=== PATIENT | female | born 1940 | race Caucasian/White ===

== ENCOUNTER 2021-08-12 08:23 | Observation (INO) ==
--- NOTE | 2021-07-16 15:23 | PAT Medication Instructions ---
Medication Instructions Date of Service July 16, 2021 Home Medications Medication Instructions Recorded Lactobacillus 1 cap PO DAILY #90 cap 11/28/18 acidophilus-Bifidobac.animalis 31 billion cell capsule calcium carbonate 600 mg-vitamin 1 tab PO BID #60 tab 11/28/18 D3 5 mcg (200 unit) tablet albuterol sulfate 90 mcg/actuation 2 puff INHALATION QID PRN #6.7 g 09/19/20 aerosol inhaler zoledronic acid 5 mg/100 mL in See Rx Instructions IV .COMPLEX 03/19/21 mannitol 5 %-water intravenous #100 ml piggybck (Reclast) gabapentin 100 mg capsule 100 mg PO QID #100 cap 07/03/21 Lactobacillus acidophilus-Bifidobac.animalis 31 billion cell capsule 1 cap PO DAILY calcium carbonate 600 mg-vitamin D3 5 mcg (200 unit) tablet 1 tab PO BID omega-3 fatty acids 1,000 mg capsule (Fish Oil Concentrate) 1,000 mg PO BID albuterol sulfate 90 mcg/actuation aerosol inhaler 2 puff INHALATION QID PRN zoledronic acid 5 mg/100 mL in mannitol 5 %-water intravenous piggybck (Reclast) See Rx Instructions IV .COMPLEX amlodipine 5 mg tablet 5 mg PO DAILY losartan 100 mg tablet 50 mg PO QAM simvastatin 40 mg tablet 20 mg PO HS gabapentin 100 mg capsule 100 mg PO QID ascorbic acid (vitamin C) 500 mg tablet (Vitamin C) 500 mg PO DAILY esomeprazole magnesium 20 mg capsule,delayed release 20 mg PO QAM flaxseed oil 1,000 mg capsule 1,000 mg PO QAM Centrum Silver Women 1 tab PO DAILY triamterene 37.5 mg-hydrochlorothiazide 25 mg tablet 0.5 tab PO QAM Continue as directed zoledronic acid 5 mg/100 mL in mannitol 5 %-water intravenous piggybck (Reclast) See Rx Instructions IV .COMPLEX STOP taking 2 weeks before surgery (or as soon as possible if surgery is within 2 weeks) omega-3 fatty acids 1,000 mg capsule (Fish Oil Concentrate) 1,000 mg PO BID flaxseed oil 1,000 mg capsule 1,000 mg PO QAM DO NOT take the morning of surgery Lactobacillus acidophilus-Bifidobac.animalis 31 billion cell capsule 1 cap PO DAILY calcium carbonate 600 mg-vitamin D3 5 mcg (200 unit) tablet 1 tab PO BID losartan 100 mg tablet 50 mg PO QAM ascorbic acid (vitamin C) 500 mg tablet (Vitamin C) 500 mg PO DAILY Centrum Silver Women 1 tab PO DAILY triamterene 37.5 mg-hydrochlorothiazide 25 mg tablet 0.5 tab PO QAM Take morning of surgery With a small sip of water, OTHERWISE NOTHING TO EAT OR DRINK AFTER MIDNIGHT: albuterol sulfate 90 mcg/actuation aerosol inhaler 2 puff INHALATION QID PRN (use if needed; please bring rescue inhaler with you to hospital day of surgery if possible) amlodipine 5 mg tablet 5 mg PO DAILY gabapentin 100 mg capsule 100 mg PO QID esomeprazole magnesium 20 mg capsule,delayed release 20 mg PO QAM Take evening before surgery calcium carbonate 600 mg-vitamin D3 5 mcg (200 unit) tablet 1 tab PO BID albuterol sulfate 90 mcg/actuation aerosol inhaler 2 puff INHALATION QID PRN (if needed) simvastatin 40 mg tablet 20 mg PO HS gabapentin 100 mg capsule 100 mg PO QID Other Notes If you have any questions please call us at [phone] or [phone] or [phone] or [phone]
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
--- NOTE | 2021-08-09 12:47 | History and Physical Report ---
DATE OF ADMISSION: 08/12/2021 CHIEF COMPLAINT: Persistent progressive right knee pain and discomfort. HISTORY OF PRESENT ILLNESS: The patient is an 80-year-old female who presents for surgical treatment of her right knee: She has a long history of right knee pain and discomfort that has gradually yannick en worse over time. She has been getting injections at the [facility] in [place]. She has had steroid shots and gel shots. These have become less successful over time. She has global pa in in her knee. Increased with weightbearing. She is having trouble maintaining an independent life style. PAST MEDICAL HISTORY: Includes: 1. Hypertension. 2. Elevated cholesterol. 3. Hiatal hernia. 4. Low back pain/sciatica. 5. High anxiety. PAST SURGICAL HISTORY: Includes: 1. Basal cell skin cancer excision. 2. Appendectomy. 3. Cholecystectomy. 4. Hysterectomy. ALLERGIES: XANAX, ASPIRIN, IBUPROFEN. ASPIRIN CAUSES NOSEBLEEDS. CURRENT MEDICATIONS: Include: 1. Albuterol. 2. Calcium. 3. Omeprazole. 4. Flaxseed oil. 5. Gabapentin. 6. Hydroxyzine. 7. Losartan. 8. [place] fatty acids. 9. Simvastatin. 10. Triamterene/hydrochlorothiazide. 11. Reclast. SOCIAL HISTORY: An 80-year-old female. Lives alone. She is retired. She does have family around. FAMILY HISTORY: Noncontributory. REVIEW OF SYSTEMS: Negative for diabetes, neurologic problems, vascular problem, or bleeding disorde rs. No chest pain. She does have some history of dizziness with a negative workup. She has anxiety . PHYSICAL EXAMINATION: GENERAL: Shows a pleasant, elderly female. Looks younger than her stated age. HEENT: Benign. NECK: Supple. No lymphadenopathy. LUNGS: Clear to auscultation. HEART: Regular rate and rhythm. ABDOMEN: Soft, nontender, nondistended. EXTREMITIES: Grossly neurovascularly intact except as follows. Examination of the right knee reveals the patient walks with a slight bit of a limp. She has varus a lignment to her knee. She is tender over the medial joint line. She has bony hypertrophy medially. Small knee effusion. Range of motion 5-125. No instability. No pain with hip motion. X-RAYS: X-rays of the right knee were reviewed. It shows advanced right knee medial compartment DJD . She has complete loss of her medial joint space. She has subchondral sclerosis. ASSESSMENT: An 80-year-old female with advanced right knee degenerative joint disease. She has fail ed conservative measures. She would like to have her right knee replaced. PLAN: We will take her to the operating room and do a right total knee replacement. The risks and b enefits of this procedure were explained to the patient and include but not limited to DVT, PE, , infection, neurological injury, vascular injury, bleeding problem, pain, limited range of motion, s tiffness, failure to relieve symptoms, incomplete relief of symptoms, need for further surgery in the future, fracture, leg length inequality, nerve palsy, etc. The patient understands and desires to p roceed. Informed consent was obtained. She does not want to use aspirin because of nosebleeds. Therefore, we will use Xarelto for 30 days p ostoperative. She does have quite a bit of anxiety. She has had some dizziness or lightheaded, had a negative cardiac workup. As far as discharge plans, she is hoping to go to [place] for a brief rehab stay afterwards as jaclyn zelaya lives by herself. Job ID: [id number]
[~2021-08-12 08:23] MED LIST: ACETAMINOPHEN 500 MG TAB PO SCH; BUPIVACAINE 0.5 % 5 MG/1 ML PF 10ML VIAL ONE; BUPIVACAINE LIPOSOME/PF 266 MG, BUPIVACAINE/EPINEPHRINE 50 ML, SODIUM CHLORIDE 0.9% 30 ... INFIL SCH; GABAPENTIN 300 MG CAP PO SCH; LR 500ML BOLUS, THEN 15ML/HR IV SCH; LR 60ML/HR IV SCH; METOCLOPRAMIDE HCL 10 MG TABLET PO SCH; ROPIVACAINE 0.5% 5 MG/ML 30 ML VIAL ONE; TRANEXAMIC ACID 1,000 MG **IV Intra-op IV SCH; ceFAZolin 2000MG 2,000 MG/15 ML SYR IV SCH
--- NOTE | 2021-08-12 08:30 | History & Physical Bridge Note ---
Date of Service August 12, 2021 History & Physical Bridge Note I have examined the patient, reviewed the History & Physical and in the interval since the performance of the History & Physical I have noted the following changes of clinical significance: no changes noted
[2021-08-12] MEDS ORDERED: ONDANSETRON INJ 2 MG/ML 2 ML VIAL IV PRN ×2 (09:09→13:32)
[2021-08-12] MEDS ORDERED: fentaNYL citrate 100 MCG/2 ML VIAL IV PRN (09:09)
[2021-08-12] MEDS ORDERED: ATROPINE SULFATE 0.1 MG/ML 10ML SYR IV PRN (09:09)
[2021-08-12] MEDS ORDERED: ePHEDrine sulfate 50 MG/ML AMP IV PRN (09:09)
[2021-08-12] MEDS ORDERED: fentaNYL citrate 100 MCG/2 ML VIAL ONE (09:42)
[2021-08-12] MEDS ORDERED: MIDAZOLAM HCL 1 MG/ML 2ML VIAL ONE (09:43)
[2021-08-12] MEDS ORDERED: SODIUM CHLORIDE 0.9% INJ 10 ML VIAL ONE (10:30)
[2021-08-12] MEDS ORDERED: BUPIVACAINE/EPINEPHRINE 0.25% 1:200,000 30 ML VIAL ONE (10:30)
[2021-08-12] MEDS ORDERED: BUPIVACAINE LIPOSOME 1.3% 266 MG/20 ML VIAL ONE (10:30)
[2021-08-12] MEDS ORDERED: PROPOFOL IV EMULSION 10 MG/ML 20 ML VIAL IV ONE (11:42)
[2021-08-12] MEDS ORDERED: ePHEDrine sulfate 50 MG/ML SYR ONE (12:22)
--- NOTE | 2021-08-12 12:33 | Operative Report ---
PG Post Operative Report Pre & Post Diagnosis Operation Date: 08/12/21 10:40 Pre-Op Diagnosis: Right Knee Osteoarthritis Post-Op Diagnosis: Right Knee Osteoarthritis I identified the patient and participated in the time-out.: Yes Procedure Operation Date: 08/12/21 10:40 Actual Procedures p Right Total Knee Arthroplasty(Right) - Edilson Quezada MD Surgeon Edislon Quezada MD Integrity Specialist George Nino PA-C Estimated Blood Loss 50 Findings Consistent with Post-Op Diagnosis Operative findings were advanced right knee DJD. She had grade 4 [id number] disease of the medial compartment. The lateral compartment and patellofemoral compartment showed fairly mild degenerative change. Moderate-sized joint effusion. Specimens Right knee sent for pathology Anesthesia Type Spinal MAC Complications none Disposition Accompanied Patient To Recovery: No Indications Patient is an 80-year-old fairly active independent female whose had a several year history of increasing right knee pain discomfort. She been through extensive conservative treatment which became less successful over time. She elected proceed with total knee arthroplasty. Description of Procedure Operative implants consist of: 1 Biomet Vanguard size 62.5 right posterior stabilized femoral component. 2. Biomet size 63 tibial tray. 3. Biomet size 10 mm posterior stabilized polyethylene insert. 4. 31 x 8 all polypatella. The patient was taken the operating, identified, and placed on the operating table supine position protectors were properly padded. IV antibiotics tried by anesthesia team. A spinal anesthetic and abductor canal block had provided in the holding area. Scott cath was placed in sterile fashion a right thigh tent was then placed in the right lower extremities then prepped and draped in usual sterile fashion. The right leg was elevated exsanguinated with use of an Esmarch interspaced at 3 mmHg. An anterior approach to the right knee was then performed to longitudinal incision centered over the patella. Sharp dissection was carried through subcutaneous tissue down the extensor mechanism. A medial parapatellar arthrotomy incision was made. Some subperiosteal dissection was carried out medially. The fat pad was resected from the patella tendon. The lateral patellofemoral ligament was released. Patella subluxated laterally and the knee was flexed. The osteophytes taken off distal femur. The ACL and PCL then released in the distal femur the tibia subluxated anteriorly. The external tibial alignment jig was then placed in the interface the tibia and adjusted 14 mm medially. Proximal tibial cut was made remove about 2 to 3 mm of bone from the most deficient aspect medial tibial plateau. The tibia sized to a size 63. Attention drawn the femur. The distal femur was entered with a sharp drill. Intramedullary canal was suction. A right 5 degree valgus cutting guide was placed. Distal femoral cutting block was pinned in place. Distal femoral cut was made to take an additional 3 mm bone off distal femur. The femur was then sized to a size 62.5. The AP cutting block was pinned parallel to the epicondylar axis which was 4 degrees of external rotation. The anterior cut, anterior chamfer, posterior cut, posterior chamfer cuts were made. The box cutting guide was placed in just slight lateral and the box cut was made. The knee was flexed. The remnants of the medial and lateral menisci were excised. The osteophytes were taken off the posterior aspect of femur. A trial femoral component was placed. The tibial tray was pinned in maximum external rotation and the drill and stem punch used to create the defect in proximal tibia for the tibial tray. The knee was then trialed and the 10 mm insert fit most appropriately. Attention drawn the patella. The patella was cleaned of all soft tissues. Patella thickness measured 21 mm in thickness was cut down to 13. Was sized to a size 31 patella. The lug holes were drilled for 31 patella. Lateral osteophytes removed. Patella button was placed. Knee was taken through range of motion patella tracked nicely with no thumbs test. Attention drawn to placing permanent components. All trial components were removed. Bone plug was placed into the distal femur limit blood loss. Double batch Pal[place] G cement was mixed. Biomet Vanguard size 62.5 right posterior stabilized femoral component, a 63 tibial tray, 10 mm posterior stabilized polyethylene insert, and a 31 x 8 all polypatella then cemented in place. Knee was brought out into full extension total cement harden ed. Final cement check was then performed. Pericapsular tissues were injected with total 100 cc of combination of 20 of Exparel, 30 cc normal saline, 50 cc of quarter percent Marcaine with epinephrine. Patient did receive 1 g tranexamic acid. The tourniquet was then let down for final tourniquet time 49 minutes. Hemostasis assured use electrocautery. Extensor mechanism closed with combination 1 PDS suture #1 Vicryl suture in [id number] fashion. Extensor mechanism checked found to be intact the subcutaneous tissue then closed with 2 Dexon suture in a buried interrupted fashion skin was closed skin forest. Legs then cleaned dried a sterile dressing was Xeroform, 4 fours, sterile cast padding, Juan Luis bandage were applied. Patient then transferred to the recovery room in stable condition. Patient tolerated procedure well and and there were no complications. George Nino, my physician behavioral health assistant, was present for the entire procedure. His assistance was essential and required for appropriate patient positioning, prepping and draping, surgical exposure, performing the technical details of the operation, placement the implants, closure of the wound, and placement of the sterile bandage. I attest to the content of the Intraoperative Record and any orders documented therein. Any exceptions are noted below.
--- NOTE | 2021-08-12 13:13 | XRay Report ---
XR knee RT 1 or 2V routine CLINICAL HISTORY: Postoperative evaluation. COMPARISON: Knee radiograph May 21, 2021. FINDINGS: Alignment of the total right knee arthroplasty is anatomic. There is no periprosthetic fra cture or unexpected radiopaque foreign bodies. There are skin forest. IMPRESSION: Expected findings following total right knee arthroplasty appear ACT 112: Negative or not required by law. Electronically signed by: Maldonado Valdez M.D. 08/12/2021 1:11 PM
[2021-08-12] MEDS ORDERED: NALOXONE HCL 0.4 MG/1 ML VIAL/CARP IV PRN (13:32)
[2021-08-12] MEDS ORDERED: ALUMINUM/MAGNESIUM SUSP 30 ML UDC PO PRN (13:32)
[2021-08-12] MEDS ORDERED: ALBUTEROL HFA 8 GM INHALER INH PRN (13:32)
[2021-08-12] MEDS ORDERED: METOCLOPRAMIDE HCL INJ 5 MG/ML 2 ML VIAL IV PRN (13:32)
[2021-08-12] MEDS ORDERED: MAGNESIUM HYDROXIDE SUSP 30 ML UDC PO PRN (13:32)
[2021-08-12] MEDS ORDERED: ZOLEDRONIC ACID 5 MG/100 ML VIAL IV SCH (13:32)
[2021-08-12] MEDS ORDERED: bisacodyL 10 MG SUPP PR PRN (13:32)
[2021-08-12] MEDS: KETOROLAC TROMETHAMINE 15 MG/ML VIAL IV SCH ×2 (14:10→20:01)
[2021-08-12] MEDS: GABAPENTIN 100 MG CAP PO SCH ×3 (14:10→20:03)
--- NOTE | 2021-08-12 14:45 | Anesthesiology Progress Note ---
Date of Service August 12, 2021 Anesthesia Post Procedure Vital Signs Vital Signs: Temp Pulse Pulse Resp BP Pulse Ox 08/12/21 14:30 69 14 125/57 L 98 08/12/21 14:00 69 14 122/57 L 98 08/12/21 13:45 69 14 126/62 97 08/12/21 13:30 97.2 F L 68 14 123/74 99 08/12/21 13:15 66 14 137/62 99 08/12/21 13:05 71 14 132/60 98 08/12/21 12:55 97.2 F L 72 14 133/62 96 08/12/21 12:45 75 14 145/72 H 94 08/12/21 12:35 75 14 144/63 H 100 08/12/21 12:29 96.8 F L 77 12 145/68 H 100 08/12/21 09:04 98.1 F 70 20 155/97 H 100 Transfer of Care Handoff Completed per policy Notes Mental Status: alert / awake / arousable and participated in evaluation Patient Amnestic to Procedure: Yes Nausea / Vomiting: adequately controlled Pain: adequately controlled Airway Patency, RR, SpO2: stable & adequate BP & HR: stable & adequate Hydration State: stable & adequate Neuraxial Anesthesia: was administered and sensory block is resolving Anesthetic Complications: no major complications apparent and Pt Satisfied with anesthetic care
[2021-08-12] MEDS: HYDROmorphone INJ 0.5 MG/0.5 ML SYR IV PRN (16:50)
[2021-08-12] MEDS ORDERED: TRANEXAMIC ACID / 0.7% NACL 1,000 MG/100 ML BAG IV SCH (18:30)
[2021-08-12] MEDS: ACETAMINOPHEN 500 MG TAB PO SCH ×2 (18:36→22:53)
[2021-08-12] MEDS: SODIUM CHLORIDE 0.9% 1000ML 1,000 ML IV SCH (18:48)
[2021-08-12] MEDS: DOCUSATE SODIUM 100 MG CAP PO SCH (20:01)
[2021-08-12] MEDS: SENNA 8.6 MG TAB PO SCH (20:02)
[2021-08-12] MEDS: OMEGA-3 (PURIFIED FISH OIL) 1 GM CAP PO SCH (20:02)
[2021-08-12] MEDS: SIMVASTATIN 20 MG TAB PO SCH (20:02)
[2021-08-12] MEDS: CALCIUM 600MG + VIT D 400 IU TAB PO SCH (20:02)
[2021-08-12] MEDS: ceFAZolin 1000MG 1,000 MG/7.5 ML SYR IV SCH (22:56)
[2021-08-13] MEDS: KETOROLAC TROMETHAMINE 15 MG/ML VIAL IV SCH ×4 (04:26→20:08)
[2021-08-13] MEDS: SODIUM CHLORIDE 0.9% 1000ML 1,000 ML IV SCH (04:26)
[2021-08-13] MEDS: ACETAMINOPHEN 500 MG TAB PO SCH ×3 (04:43→22:28)
[2021-08-13] MEDS: traMADol HCL 50 MG TABLET PO PRN ×3 (04:43→22:28)
[2021-08-13] MEDS: ceFAZolin 1000MG 1,000 MG/7.5 ML SYR IV SCH (04:48)
[2021-08-13 06:24] LABS: Hematocrit (blood only) 31.5 % (37-47); Hemoglobin 10.6 g/dL (12.0-16.0); Mean Corpuscular Hemoglobin 29.1 pg (25-34); Mean Corpuscular Hgb Conc 33.7 g/dL (32-36); Mean Corpuscular Volume 86.5 fL (80-100); Mean Platelet Volume 11.1 fL (7.4-10.4); Platelet Count 149 K/uL (130-400); RDW Coefficient of Variation 12.9 % (11.5-14.5); Red Blood Count 3.64 M/uL (4.2-5.4); White Blood Count 6.72 K/uL (4.8-10.8)
[2021-08-13 06:39] LABS: Calcium 9.1 mg/dl (8.5-10.1); Creatinine Clr Calc Pharmacy 40.7 ml/min; Est GFR (Non-African American) 64.7 ml/min; Potassium 3.4 mmol/L (3.5-5.1)
[2021-08-13] MEDS ORDERED: dexAMETHasone 10 MG in SYRINGE 0 ML IV SCH (08:00)
[2021-08-13] MEDS: TRIAMTERENE/HCTZ 37.5/25MG TAB PO SCH (08:02)
[2021-08-13] MEDS: OMEGA-3 (PURIFIED FISH OIL) 1 GM CAP PO SCH ×2 (08:02→20:12)
[2021-08-13] MEDS: CALCIUM 600MG + VIT D 400 IU TAB PO SCH ×2 (08:02→20:12)
[2021-08-13] MEDS: GABAPENTIN 100 MG CAP PO SCH ×4 (08:02→20:13)
[2021-08-13] MEDS: MULTIVITAMIN TAB PO SCH (08:03)
[2021-08-13] MEDS: ASCORBIC ACID 500 MG TAB PO SCH (08:03)
[2021-08-13] MEDS: ADVANCED PROBIOTIC 1250 MG CAPSULE PO SCH (08:03)
[2021-08-13] MEDS: DOCUSATE SODIUM 100 MG CAP PO SCH ×2 (08:03→20:12)
[2021-08-13] MEDS: LOSARTAN POTASSIUM 50 MG TAB PO SCH (08:03)
[2021-08-13] MEDS: amLODIPine BESYLATE 5 MG TAB PO SCH (08:03)
[2021-08-13] MEDS: PANTOprazole 40 MG TAB PO SCH (08:03)
[2021-08-13] MEDS: HYDROmorphone INJ 0.5 MG/0.5 ML SYR IV PRN (08:59)
[2021-08-13] MEDS ORDERED: NON-FORMULARY MEDICATION (Flaxseed Oil 1,000 mg capsule) PO SCH (09:00)
[2021-08-13] MEDS ORDERED: NON-FORMULARY MEDICATION (Multivit-Min-Iron-Fa-Lutein [Centrum Silver Women] 8 mg iron-400 PO SCH (09:00)
[2021-08-13] MEDS: RIVAROXABAN 10 MG TABLET PO SCH (13:32)
[2021-08-13] MEDS ORDERED: POTASSIUM CHLORIDE CRTAB 20 MEQ TABCR PO ONE (17:36)
--- NOTE | 2021-08-13 17:58 | Progress Notes ---
DATE OF NOTE: 08/13/2021. SUBJECTIVE: An 80-year-old female now postop day 1 from right knee replacement. She is doing pretty well. Having some pain, but responds well to pain medicine. Therapy went pretty well. No chest pa in or shortness of breath. Not feeling dizzy or lightheaded. OBJECTIVE: VITAL SIGNS: Temperature 36.7. Vital signs are stable. GENERAL: Shows a pleasant, elderly female. She is sitting up in her bedside chair, looks pretty com fortable. EXTREMITIES: Examination of the right leg reveals the dressing to be clean, dry and intact. She can dorsiflex and plantarflex her foot appropriately. She is neurologically intact. LABORATORY: Hemoglobin 10.6. Hematocrit 31.5. Electrolytes are stable. Potassium is slightly low at 3.4. ASSESSMENT: An 80-year-old female postop day 1 from a right knee replacement, doing pretty well. He r pain is controlled. She is neurologically intact. Her potassium is a little low and we will suppl ement that. PLAN: 1. DVT prophylaxis include thigh-high TEDs, SCDs, and we are going to use Xarelto as she does not to lerate aspirin. We will do Xarelto for 30 days. 2. PT, OT, weightbear as tolerated. Right total knee protocol. 3. Pain control, doing pretty well with current pain regimen. 4. Disposition: She is going to be discharged to [place] for a brief rehab stay. We will hopef ully get her there tomorrow. Job ID: [id number]
[2021-08-13] MEDS: SENNA 8.6 MG TAB PO SCH (20:12)
[2021-08-13] MEDS: SIMVASTATIN 20 MG TAB PO SCH (20:13)
[2021-08-14] MEDS: KETOROLAC TROMETHAMINE 15 MG/ML VIAL IV SCH ×2 (01:57→08:21)
[2021-08-14] MEDS: traMADol HCL 50 MG TABLET PO PRN (06:13)
[2021-08-14] MEDS: ACETAMINOPHEN 500 MG TAB PO SCH (06:14)
[2021-08-14] MEDS: amLODIPine BESYLATE 5 MG TAB PO SCH (08:17)
[2021-08-14] MEDS: MULTIVITAMIN TAB PO SCH (08:17)
[2021-08-14] MEDS: DOCUSATE SODIUM 100 MG CAP PO SCH (08:17)
[2021-08-14] MEDS: PANTOprazole 40 MG TAB PO SCH (08:17)
[2021-08-14] MEDS: ADVANCED PROBIOTIC 1250 MG CAPSULE PO SCH (08:17)
[2021-08-14] MEDS: OMEGA-3 (PURIFIED FISH OIL) 1 GM CAP PO SCH (08:17)
[2021-08-14] MEDS: TRIAMTERENE/HCTZ 37.5/25MG TAB PO SCH (08:17)
[2021-08-14] MEDS: RIVAROXABAN 10 MG TABLET PO SCH (08:18)
[2021-08-14] MEDS: CALCIUM 600MG + VIT D 400 IU TAB PO SCH (08:18)
[2021-08-14] MEDS: ASCORBIC ACID 500 MG TAB PO SCH (08:18)
[2021-08-14] MEDS: LOSARTAN POTASSIUM 50 MG TAB PO SCH (08:18)
[2021-08-14] MEDS: GABAPENTIN 100 MG CAP PO SCH (08:18)
--- NOTE | 2021-08-14 08:44 | Progress Notes ---
DATE OF SERVICE: 08/14/2021. SUBJECTIVE: An 80-year-old white female postop day 2 from a right knee replacement. She is doing pr griffin well. Had a reasonable night. No chest pain or shortness of breath. Not feeling dizzy or ligh theaded. Hoping to get out of the hospital today and go in to rehabilitation. OBJECTIVE: VITAL SIGNS: Temperature 36.9. Vital signs are stable. GENERAL: Physical examination shows a pleasant, elderly female. She is sitting up in bed and looks pretty comfortable this morning. EXTREMITIES: Examination of the right leg reveals the dressing to be clean, dry, and intact. The le g is well aligned. She can dorsiflex and plantarflex her foot appropriately. She is neurologically intact. PLAN: 1. DVT prophylaxis to include thigh-high TEDs, SCDs, and Xarelto for 30 days due to her aspirin issu es. 2. PT, OT, weightbear as tolerated. Right total knee protocol. 3. Pain control, doing okay with current pain regimen. 4. Disposition: Plan to discharge to [facility] later today. Job ID: [id number]
--- NOTE | 2021-08-16 18:47 | Discharge Summary ---
Date of Service August 16, 2021 Discharge Data Procedures Performed Operation Date: 08/12/21 10:40 Actual Procedures p Right Total Knee Arthroplasty(Right) - Edilson Quezada MD Hospital Course (1) Status post total right knee replacement: This is a 80 year old patient admitted on 08/12/21 and underwent total knee arthroplasty. She tolerated the procedure well and there were no complications. Transferred to the PACU post op and later to the orthopedic floor for further care. She was given ancef for antibiotic prophylaxis. She was also given [place] stockings, SCDs, and xarelto for DVT prophylaxis. Hemoglobin, hematocrit, and vital signs were monitored during her hospital stay and remained stable. Did not require any blood transfusions. There were no complications during her hospital stay. By post op day #2 the patient was tolerating a regular diet, pain was reasonably controlled with oral pain medicine, and she was participating in physical therapy. On post op day #2 the patient was discharged to a rehab facility. She was given printed discharge instructions including prescriptions for extra strength tylenol, xarelto, and tramadol. Continue physical therapy, weight bearing as tolerated. Continue [place] stockings. Follow up approximately 2 weeks post op or sooner if there are problems or concerns. Coding Level of Care Code None Diagnoses Status post total right knee replacement Z96.651
== END 2021-08-14 11:00 ==
LOC: ASU 08:23 → PACUINP 08:23 → 3W 18:34
DX: J45.909 Unspecified asthma, uncomplicated; Z79.899 Other long term (current) drug therapy; Z88.6 Allergy status to analgesic agent; M17.11 Unilateral primary osteoarthritis, right knee; Z91.048 Other nonmedicinal substance allergy status; I10 Essential (primary) hypertension; Z91.040 Latex allergy status; E78.00 Pure hypercholesterolemia, unspecified; Z88.8 Allergy status to other drugs, medicaments and biological substances; K21.9 Gastro-esophageal reflux disease without esophagitis